=== PATIENT | female | born 2000 | race Caucasian/White ===

== ENCOUNTER 2018-01-19 11:35 | Emergency (ER) | payer OTHER ==
[~2018-01-19] VITALS: Ht 175.2 cm; Wt 110.7 kg
[2018-01-19] MEDS ORDERED: EPIPEN 2-P0.3 MG/0.3 IJ (12:26)
== END 2018-01-19 12:29 | disposition home or self-care (01) ==
LOC: ED 11:35
DX: T63.441A Toxic effect of venom of bees, accidental (unintentional), initial encounter (principal); Z91.048 Other nonmedicinal substance allergy status; Y92.89 Other specified places as the place of occurrence of the external cause

== ENCOUNTER 2018-03-29 22:15 | Emergency (ER) | payer OTHER ==
[~2018-03-29] VITALS: Ht 175.2 cm; Wt 111.1 kg
[~2018-03-29 22:15] MED LIST: EPIPEN 2-P0.3 MG/0.3 IJ
[2018-03-29 22:36] LABS: BILIRUBIN 1+ (NEGATIVE); BLOOD 3+ (NEGATIVE); CLARITY CLOUDY (CLEAR); COLOR YELLOW (YELLOW); GLUCOSE NEGATIVE (NEGATIVE); KETONE TRACE (NEGATIVE); LEUKO ESTERASE TRACE (NEGATIVE); NITRITE NEGATIVE (NEGATIVE); PH 5.5 (5.0-9.0); SPECIFIC GRAVITY >= 1.030 (1.005-1.030)
[2018-03-29 22:50] LABS: BACTERIA 3+; EPITHELIAL CELLS 25-30; MUCOUS 3+; RBC 41-50 rbc/hpf (0-2)
[2018-03-29 23:35] LABS: BASO % 0.2 % (0.0-1.0); EOS # 0.2 10*3/uL (0.0-0.4); EOS % 2.6 % (1.0-4.0); HEMATOCRIT 39.8 % (37.0-47.0); HEMOGLOBIN 13.1 g/dl (12.0-16.0); LYMPH % 24.7 % (27.0-41.0); MEAN CELL VOLUME 85.2 fl (81.0-99.0); MEAN CORPUSCULAR HGB 28.1 pg (27.0-31.0); MEAN CORPUSCULAR HGB CONC 32.9 g/dl (33.0-37.0); MEAN PLATELET VOLUME 10.7 fl (9.6-12.3); MONO # 0.5 10*3/uL (0.1-1.0); MONO % 5.8 % (3.0-9.0); NEUT # 5.3 10*3/uL (2.3-7.9); NEUT % 66.5 % (47.0-73.0); PLATELET COUNT AUTOMATED 278 10*3/uL (130-400); RED BLOOD COUNT 4.67 10*6/uL (4.10-5.10); RED CELL DISTRI WIDTH 12.9 % (0-14.5); WHITE BLOOD COUNT 8.1 10*3/uL (4.8-10.8)
[2018-03-29 23:49] LABS: ALBUMIN 3.7 gm/dl (3.1-4.5); ALKALINE PHOSPHATASE 72 U/L (45-117); BUN 10 mg/dl (7-24); CHLORIDE 105 mmol/L (98-107); LIPASE 53 U/L (73-393); POTASSIUM 3.2 mmol/L (3.5-5.1); SGOT/AST 22 IU/L (3-35); SGPT/ALT 32 U/L (12-78); SODIUM 142 mmol/L (136-145); TOTAL PROTEIN 8.1 gm/dL (6.4-8.2)
[2018-03-30] MEDS ORDERED: MACROBID100 M1 PO (00:28)
[2018-03-30] MEDS ORDERED: KENALOG 0.1%80 GM T (00:28)
== END 2018-03-30 00:57 | disposition home or self-care (01) ==
LOC: ED 22:15
PROVIDERS: Nurse Practitioner Family
DX: S40.862A Insect bite (nonvenomous) of left upper arm, initial encounter (principal); S40.861A Insect bite (nonvenomous) of right upper arm, initial encounter; N39.0 Urinary tract infection, site not specified; B27.90 Infectious mononucleosis, unspecified without complication; R19.7 Diarrhea, unspecified; Z91.040 Latex allergy status; W57.XXXA Bitten or stung by nonvenomous insect and other nonvenomous arthropods, initial encounter; Y93.89 Activity, other specified; Y92.89 Other specified places as the place of occurrence of the external cause; Y99.8 Other external cause status

== ENCOUNTER 2018-06-27 21:11 | Emergency (ER) | payer OTHER ==
[~2018-06-27] VITALS: Ht 175.2 cm; Wt 111.1 kg
[~2018-06-27 21:11] MED LIST changes: +KENALOG 0.1%80 GM T; +MACROBID100 M1 PO
[2018-06-27] MEDS ORDERED: SEPTDS PO (21:41)
[2018-06-27] MEDS ORDERED: CEPHALEXIN500 M1 PO (21:41)
== END 2018-06-27 22:00 | disposition home or self-care (01) ==
LOC: ED 21:11
DX: L02.211 Cutaneous abscess of abdominal wall (principal); L03.311 Cellulitis of abdominal wall; Z79.2 Long term (current) use of antibiotics; Z79.899 Other long term (current) drug therapy

== ENCOUNTER 2019-07-20 17:32 | Emergency (ER) | payer OTHER ==
[~2019-07-20] VITALS: Ht 175.2 cm; Wt 111.1 kg
[~2019-07-20 17:32] MED LIST changes: +CEPHALEXIN500 M1 PO; +SEPTDS PO
[2019-07-20 19:13] LABS: BILIRUBIN 1+ (NEGATIVE); BLOOD NEGATIVE (NEGATIVE); CLARITY SL CLOUDY (CLEAR); COLOR YELLOW (YELLOW); GLUCOSE NEGATIVE (NEGATIVE); KETONE 1+ (NEGATIVE); LEUKO ESTERASE NEGATIVE (NEGATIVE); NITRITE NEGATIVE (NEGATIVE); PH 5.5 (5.0-9.0); SPECIFIC GRAVITY >= 1.030 (1.005-1.030); UROBILINOGEN 0.2 E.U./dl (0.2-1.0)
[2019-07-20 19:22] LABS: MUCOUS 2+
[2019-07-20] MEDS ORDERED: ZOFRAN4 MG PO (20:54)
== END 2019-07-20 21:36 | disposition home or self-care (01) ==
LOC: ED 17:32
PROVIDERS: Physician Assistant
DX: R11.2 Nausea with vomiting, unspecified (principal); R19.7 Diarrhea, unspecified; R68.83 Chills (without fever)